=== PATIENT | male | born 1945 | race Caucasian/White ===

== ENCOUNTER → 2020-07-13 | Outpatient (CLI) | payer MEDICARE | LOC: KOH-I 09:27 | DX: M25.511 Pain in right shoulder (principal); M19.011 Primary osteoarthritis, right shoulder | CPT/HCPCS: 73030 ==

== ENCOUNTER 2020-07-22 12:28 | Emergency (ER) | payer MEDICARE ==
[2020-07-22 13:20] LABS: HEMOGLOBIN 14.7 gm/dl (14.0-17.5); RED BLOOD COUNT 4.76 M/UL (4.20-5.50); WHITE BLOOD COUNT 7.4 K/UL (4.5-11.0)
[2020-07-22 14:01] LABS: BUN/CREATININE RATIO 21 (0-10)
== END 2020-07-22 15:00 | disposition other institution (70) ==
LOC: ER1 12:28
PROVIDERS: Emergency Medicine
DX: I63.232 Cerebral infarction due to unspecified occlusion or stenosis of left carotid arteries (principal); R29.729 NIHSS score 29; E11.9 Type 2 diabetes mellitus without complications; Z20.822 Contact with and (suspected) exposure to COVID-19
CPT/HCPCS: 0240U; 70450; 70496; 70498; 71045; 80053; 82550; 82553; 83605; 83690; 83880; 84484; 85025; 85610; 85730; 93005; 96374; 99285; J1953; Q9967

== ENCOUNTER 2020-12-29 23:34 | Emergency (ER) | payer MEDICARE ==
[~2020-12-29] VITALS: Ht 185.4 cm; Wt 103.0 kg
[2020-12-29 23:43] LABS: HEMOGLOBIN 16.9 gm/dl (14.0-17.5); RED BLOOD COUNT 5.48 M/UL (4.20-5.50); WHITE BLOOD COUNT 11.6 K/UL (4.5-11.0)
[2020-12-30 00:07] LABS: BUN/CREATININE RATIO 19 (0-10)
== END 2020-12-30 05:08 | disposition short-term general hospital (02) ==
LOC: ER1 23:34
PROVIDERS: Family Medicine
DX: I63.231 Cerebral infarction due to unspecified occlusion or stenosis of right carotid arteries (principal); I63.232 Cerebral infarction due to unspecified occlusion or stenosis of left carotid arteries; Z20.822 Contact with and (suspected) exposure to COVID-19; E16.2 Hypoglycemia, unspecified; R29.719 NIHSS score 19
CPT/HCPCS: 70450; 70496; 70498; 71045; 80053; 82550; 82553; 82962; 83874; 84484; 85025; 85610; 85730; 93005; 96374; 99285; J1644; Q9967; U0002

== ENCOUNTER 2021-02-06 17:48 | Emergency (ER) | payer MEDICARE ==
[2021-02-06 18:44] LABS: HEMOGLOBIN 15.3 gm/dl (14.0-17.5); RED BLOOD COUNT 4.96 M/UL (4.20-5.50)
[2021-02-06 21:42] LABS: BUN/CREATININE RATIO 16 (0-10)
[2021-02-09 11:20] LABS: ACINETOBACTER BAUMANNII Not Detected (Negative); ENTEROCOCCUS Not Detected (Negative); ESCHERICHIA COLI Not Detected (Negative); KLEBSIELLA OXYTOCA Not Detected (Negative); KLEBSIELLA PNEUMONIAE Not Detected (Negative); KPC-CARBAPENEM-RESISTANCE GENE Not Detected (Negative); PROTEUS Not Detected (Negative); SERRATIA MARCESANS Not Detected (Negative); STAPHYLOCOCCUS AUREUS Not Detected (Negative); STREP AGALACTIAE (GROUP B) Not Detected (Negative); STREP PYOGENES (GROUP A) Not Detected (Negative); STREPTOCOCCUS Not Detected (Negative); vanA/B (VANCOMYCIN RESIST GENE Not Detected (Negative)
[2021-02-09 11:21] LABS: CANDIDA ALBICANS Not Detected (Negative); CANDIDA KRUSEI Not Detected (Negative); CANDIDA TROPICALIS Not Detected (Negative); HAEMOPHILUS INFLUENZAE Not Detected (Negative); PSEUDOMONAS AERUGINOSA Not Detected (Negative)
[2021-02-09 14:48] LABS: STAPHYLOCOCCUS DETECTED (Negative); mecA (METHICILLIN RESIST GENE DETECTED (Negative)
== END 2021-02-07 02:59 | disposition home or self-care (01) ==
LOC: ER1 17:48
PROVIDERS: Emergency Medicine
DX: R53.1 Weakness (principal); E11.9 Type 2 diabetes mellitus without complications; I10 Essential (primary) hypertension; Z86.73 Personal history of transient ischemic attack (TIA), and cerebral infarction without residual deficits; Z20.822 Contact with and (suspected) exposure to COVID-19; Z90.49 Acquired absence of other specified parts of digestive tract
CPT/HCPCS: 70450; 71045; 80053; 80307; 81001; 82550; 82553; 82962; 83605; 83735; 83874; 84484; 85025; 87040; 87077; 87150; 87186; 93005; 99285; U0002

== ENCOUNTER 2021-04-04 11:44 | Inpatient (IN) | payer MEDICARE, MEDICAID ==
[~2021-04-04] VITALS: Ht 180.3 cm; Wt 87.5 kg
[2021-04-04 12:55] LABS: HEMOGLOBIN 16.1 gm/dl (14.0-17.5); RED BLOOD COUNT 5.21 M/UL (4.20-5.50); WHITE BLOOD COUNT 9.1 K/UL (4.5-11.0)
[2021-04-05 05:59] LABS: RED BLOOD COUNT 4.97 M/UL (4.20-5.50); WHITE BLOOD COUNT 7.5 K/UL (4.5-11.0)
[2021-04-05] MEDS ORDERED: HYDROCODON-ACE1 EAC4 PO (11:05)
[2021-04-05] MEDS ORDERED: NOVOLOG FL100 UNIT/1 SQ (11:05)
[2021-04-05] MEDS ORDERED: GABAPENTIN800 MG PO (11:05)
[2021-04-05] MEDS ORDERED: LEVEMIR FL100 UNIT/1 SQ (11:06)
[2021-04-05] MEDS ORDERED: LISINOPRIL40 MG PO (11:06)
[2021-04-05] MEDS ORDERED: ATORVASTATIN CA80 MG PO (11:06)
[2021-04-05] MEDS ORDERED: CLOPIDOGREL75 MG PO (11:07)
[2021-04-05] MEDS ORDERED: LEVETIRACETAM750 MG PO (11:07)
[2021-04-05] MEDS ORDERED: SERTRALINE HCL25 MG PO (11:07)
[2021-04-05] MEDS ORDERED: PROAIR HFA8.5 GM INH (11:08)
[2021-04-05] MEDS ORDERED: HYDROCHLOROTHIA50 MG PO (11:08)
[2021-04-05] MEDS ORDERED: SENNA-S 8.6-501 EACH PO (11:08)
[2021-04-05] MEDS ORDERED: ASPIRIN EC81 MG PO (11:09)
[2021-04-06 06:38] LABS: HEMOGLOBIN 15.2 gm/dl (14.0-17.5); RED BLOOD COUNT 5.01 M/UL (4.20-5.50); WHITE BLOOD COUNT 6.6 K/UL (4.5-11.0)
--- NOTE | 2021-04-06 14:20 | NUR ---
04/06/21 1420 REPORT CALLED TO MANJEET CHOW RN TO BE TRANSFERRED TO ROOM 4112
[2021-04-07 03:55] LABS: HEMOGLOBIN 13.7 gm/dl (14.0-17.5); RED BLOOD COUNT 4.59 M/UL (4.20-5.50)
[2021-04-07 04:02] LABS: WHITE BLOOD COUNT 4.4 K/UL (4.5-11.0)
[2021-04-08 09:29] LABS: HEMOGLOBIN 15.3 gm/dl (14.0-17.5); RED BLOOD COUNT 5.04 M/UL (4.20-5.50); WHITE BLOOD COUNT 4.3 K/UL (4.5-11.0)
[2021-04-08] MEDS ORDERED: LISINOPRIL10 MG PO (15:10)
[2021-04-08] MEDS ORDERED: AMLODIPINE BESYL5 MG PO (15:10)
== END 2021-04-08 19:52 | disposition home or self-care (01) | DRG 638 ==
LOC: ER1 11:44 → CDU 20:24 → CCU 20:24 → MED SURG 4 04-06 14:42
PROVIDERS: Emergency Medicine; Internal Medicine; ADMIT Internal Medicine
DX: E11.65 Type 2 diabetes mellitus with hyperglycemia (principal); N17.9 Acute kidney failure, unspecified; I69.351 Hemiplegia and hemiparesis following cerebral infarction affecting right dominant side; E87.1 Hypo-osmolality and hyponatremia; G93.40 Encephalopathy, unspecified; Z20.822 Contact with and (suspected) exposure to COVID-19; W01.0XXA Fall on same level from slipping, tripping and stumbling without subsequent striking against object, initial encounter; I12.9 Hypertensive chronic kidney disease with stage 1 through stage 4 chronic kidney disease, or unspecified chronic kidney disease; F17.200 Nicotine dependence, unspecified, uncomplicated; R53.81 Other malaise; E86.0 Dehydration; R33.8 Other retention of urine; N18.30 Chronic kidney disease, stage 3 unspecified; J44.9 Chronic obstructive pulmonary disease, unspecified; Z99.81 Dependence on supplemental oxygen; Z90.49 Acquired absence of other specified parts of digestive tract; T50.2X5A Adverse effect of carbonic-anhydrase inhibitors, benzothiadiazides and other diuretics, initial encounter; Z79.899 Other long term (current) drug therapy; Z79.82 Long term (current) use of aspirin; Z79.4 Long term (current) use of insulin
CPT/HCPCS: 36415; 70450; 71045; 73502; 80048; 80053; 81001; 82550; 82553; 82962; 83605; 83874; 84484; 85025; 85610; 85730; 87040; 93005; 97116; 97116-GP-CQ; 97161; 97166; 99285; G0378; J0360; J1644; U0002

== ENCOUNTER 2021-06-25 13:22 | Inpatient (IN) | payer MEDICARE, MEDICAID ==
[~2021-06-25] VITALS: Ht 180.3 cm; Wt 92.5 kg
[~2021-06-25 13:22] MED LIST: AMLODIPINE BESYL5 MG PO; ASPIRIN EC81 MG PO; ATORVASTATIN CA80 MG PO; CLOPIDOGREL75 MG PO; GABAPENTIN800 MG PO; HYDROCHLOROTHIA50 MG PO; HYDROCODON-ACE1 EAC4 PO; LEVEMIR FL100 UNIT/1 SQ; LEVETIRACETAM750 MG PO; LISINOPRIL10 MG PO; LISINOPRIL40 MG PO; NOVOLOG MI100 UNIT/1 SQ; PROAIR HFA8.5 GM INH; SENNA-S 8.6-501 EACH PO; SERTRALINE HCL25 MG PO
[2021-06-25 13:51] LABS: HEMOGLOBIN 15.2 gm/dl (14.0-17.5); RED BLOOD COUNT 5.03 M/UL (4.20-5.50); WHITE BLOOD COUNT 8.7 K/UL (4.5-11.0)
[2021-06-25] MEDS ORDERED: LOSARTAN POTASS25 MG PO (15:58)
[2021-06-25] MEDS ORDERED: LISINOPRIL40 MG PO (15:58)
[2021-06-26 02:38] LABS: HEMOGLOBIN 14.3 gm/dl (14.0-17.5); RED BLOOD COUNT 4.8 M/UL (4.20-5.50)
--- NOTE | 2021-06-26 13:52 | NUR ---
STATES OK FOR PT TO BE OFF TELE FOR MRI
[2021-06-27 06:11] LABS: HEMOGLOBIN 14.2 gm/dl (14.0-17.5); RED BLOOD COUNT 4.79 M/UL (4.20-5.50); WHITE BLOOD COUNT 6.1 K/UL (4.5-11.0)
[2021-06-28 07:29] LABS: HEMOGLOBIN 15.3 gm/dl (14.0-17.5); RED BLOOD COUNT 5.17 M/UL (4.20-5.50)
[2021-06-28 07:30] LABS: WHITE BLOOD COUNT 7.9 K/UL (4.5-11.0)
[2021-06-28] MEDS ORDERED: COREG12.5 MG PO (09:43)
[2021-06-28] MEDS ORDERED: ELIQUIS 5 MG TAB5 MG PO (09:43)
== END 2021-06-28 13:24 | DRG 65 ==
LOC: ER1 13:22 → PROG CARE 17:44 → CDU 17:44 → PROG CARE 17:44 → M/S 06-26 10:14 → PROG CARE 06-26 10:14 → M/S 06-26 20:53
PROVIDERS: Internal Medicine; Nurse Practitioner; ADMIT Internal Medicine
PROC: B24BZZZ Ultrasonography of Heart with Aorta (ICD-10-PCS; principal; 2021-06-26)
DX: I63.522 Cerebral infarction due to unspecified occlusion or stenosis of left anterior cerebral artery (principal); N39.0 Urinary tract infection, site not specified; G81.91 Hemiplegia, unspecified affecting right dominant side; Z20.822 Contact with and (suspected) exposure to COVID-19; I65.21 Occlusion and stenosis of right carotid artery; J44.9 Chronic obstructive pulmonary disease, unspecified; N18.30 Chronic kidney disease, stage 3 unspecified; E11.22 Type 2 diabetes mellitus with diabetic chronic kidney disease; I08.3 Combined rheumatic disorders of mitral, aortic and tricuspid valves; R29.707 NIHSS score 7; E78.5 Hyperlipidemia, unspecified; I12.9 Hypertensive chronic kidney disease with stage 1 through stage 4 chronic kidney disease, or unspecified chronic kidney disease; Z79.82 Long term (current) use of aspirin; Z90.49 Acquired absence of other specified parts of digestive tract; Z82.49 Family history of ischemic heart disease and other diseases of the circulatory system; Z87.891 Personal history of nicotine dependence
CPT/HCPCS: ECHO; 0240U; 36415; 70450; 70496; 70498; 70551; 71045; 74230; 80053; 80307; 81001; 82140; 82550; 82553; 82962; 83605; 83735; 83874; 83880; 84100; 84484; 85025; 85027; 85610; 85730; 86140; 87040; 87086; 92526; 92610; 92611-GN; 93005; 93306; 94760; 96372; 96374; 96375; 96376; 97116; 97116-GP-CQ; 97162; 97166; 97530; 97535; 99285; G0378; J0360; J0696; J1650; J2060; J3475; Q9967

== ENCOUNTER 2021-07-16 10:47 | Emergency (ER) | payer MEDICARE ==
[~2021-07-16 10:47] MED LIST changes: +COREG12.5 MG PO; +ELIQUIS 5 MG TAB5 MG PO; +LOSARTAN POTASS25 MG PO
[2021-07-16 11:22] LABS: HEMOGLOBIN 16.5 gm/dl (14.0-17.5); RED BLOOD COUNT 5.46 M/UL (4.20-5.50); WHITE BLOOD COUNT 8.9 K/UL (4.5-11.0)
[2021-07-16] MEDS ORDERED: VISTARIL 25 MG25 MG PO (14:53)
== END 2021-07-16 17:30 | disposition home or self-care (01) ==
LOC: ER1 10:47
PROVIDERS: Emergency Medicine
DX: E11.65 Type 2 diabetes mellitus with hyperglycemia (principal); E11.22 Type 2 diabetes mellitus with diabetic chronic kidney disease; I12.9 Hypertensive chronic kidney disease with stage 1 through stage 4 chronic kidney disease, or unspecified chronic kidney disease; N18.9 Chronic kidney disease, unspecified; F41.9 Anxiety disorder, unspecified; E78.5 Hyperlipidemia, unspecified; R06.00 Dyspnea, unspecified; I69.351 Hemiplegia and hemiparesis following cerebral infarction affecting right dominant side; Z90.89 Acquired absence of other organs; Z79.01 Long term (current) use of anticoagulants
CPT/HCPCS: 70450; 71045; 80053; 81001; 82550; 82553; 82962; 83880; 84484; 85025; 85379; 93005; 96360; 99285

== ENCOUNTER 2021-07-20 12:58 | Inpatient (IN) | payer MEDICARE, MEDICAID ==
[~2021-07-20] VITALS: Ht 180.3 cm; Wt 88.5 kg
[~2021-07-20 12:58] MED LIST changes: +VISTARIL 25 MG25 MG PO
[2021-07-20 14:22] LABS: HEMOGLOBIN 15.4 gm/dl (14.0-17.5); RED BLOOD COUNT 5.11 M/UL (4.20-5.50); WHITE BLOOD COUNT 7.7 K/UL (4.5-11.0)
[2021-07-20] MEDS ORDERED: ELIQUIS5 MG PO (16:39)
[2021-07-20] MEDS ORDERED: CARVEDILOL12.5 MG PO (16:45)
[2021-07-21 07:28] LABS: HEMOGLOBIN 13.5 gm/dl (14.0-17.5); RED BLOOD COUNT 4.61 M/UL (4.20-5.50); WHITE BLOOD COUNT 6.6 K/UL (4.5-11.0)
[2021-07-22 06:19] LABS: RED BLOOD COUNT 4.72 M/UL (4.20-5.50); WHITE BLOOD COUNT 6.2 K/UL (4.5-11.0)
[2021-07-24 06:26] LABS: HEMOGLOBIN 14.8 gm/dl (14.0-17.5); RED BLOOD COUNT 4.94 M/UL (4.20-5.50); WHITE BLOOD COUNT 5.9 K/UL (4.5-11.0)
[2021-07-24] MEDS ORDERED: CARVEDILOL3.125 MG PO (11:27)
[2021-07-24] MEDS ORDERED: AMLODIPINE BESYL5 MG PO (11:27)
== END 2021-07-24 14:38 | disposition home health service (06) | DRG 684 ==
LOC: ER1 12:58 → M/S 17:37 → CDU 17:37 → M/S 21:53
PROVIDERS: Nurse Practitioner; Physician Assistant; Physician Assistant Medical; ADMIT Internal Medicine
DX: N17.9 Acute kidney failure, unspecified (principal); I12.9 Hypertensive chronic kidney disease with stage 1 through stage 4 chronic kidney disease, or unspecified chronic kidney disease; N18.30 Chronic kidney disease, stage 3 unspecified; E11.22 Type 2 diabetes mellitus with diabetic chronic kidney disease; R31.0 Gross hematuria; I16.0 Hypertensive urgency; I65.22 Occlusion and stenosis of left carotid artery; Z66 Do not resuscitate; E11.65 Type 2 diabetes mellitus with hyperglycemia; J44.9 Chronic obstructive pulmonary disease, unspecified; K59.00 Constipation, unspecified; E78.5 Hyperlipidemia, unspecified; R00.1 Bradycardia, unspecified; Z79.899 Other long term (current) drug therapy; Z86.73 Personal history of transient ischemic attack (TIA), and cerebral infarction without residual deficits; Z90.49 Acquired absence of other specified parts of digestive tract; Z82.49 Family history of ischemic heart disease and other diseases of the circulatory system; Z79.82 Long term (current) use of aspirin; Z79.01 Long term (current) use of anticoagulants; Z91.81 History of falling
CPT/HCPCS: 36415; 70450; 71045; 80048; 80053; 80307; 81001; 82009; 82140; 82550; 82553; 82962; 83605; 83735; 84100; 84484; 85025; 85027; 87040; 87086; 96361; 96374; 97116-GP-CQ; 97162; 97166; 97530; 99285; G0378; J0360; J7030

== ENCOUNTER 2021-08-10 17:31 | Inpatient (IN) | payer MEDICARE ==
[~2021-08-10] VITALS: Ht 182.9 cm; Wt 104.3 kg
[~2021-08-10 17:31] MED LIST changes: +CARVEDILOL12.5 MG PO; +CARVEDILOL3.125 MG PO; +ELIQUIS5 MG PO
[2021-08-10 19:00] LABS: HEMOGLOBIN 13.7 gm/dl (14.0-17.5); RED BLOOD COUNT 4.59 M/UL (4.20-5.50); WHITE BLOOD COUNT 6.7 K/UL (4.5-11.0)
[2021-08-12 05:51] LABS: HEMOGLOBIN 14.9 gm/dl (14.0-17.5); RED BLOOD COUNT 4.98 M/UL (4.20-5.50); WHITE BLOOD COUNT 7.5 K/UL (4.5-11.0)
--- NOTE | 2021-08-12 08:45 | NUR ---
PATIENT NOTED TO ATTEMPT TO TURN OFF STRIP BED ALARM AT WALL SITE. RN INSTRUCTED PATIENT NOT TO DO THIS THE ALARM WAS FOR PATIENT SAFETY AND FALL PREVENTION. PATIENT VERBALIZED UNDERSTANDING.
[2021-08-13 06:17] LABS: HEMOGLOBIN 15.4 gm/dl (14.0-17.5); RED BLOOD COUNT 5.04 M/UL (4.20-5.50); WHITE BLOOD COUNT 8.2 K/UL (4.5-11.0)
--- NOTE | 2021-08-14 19:30 | NUR ---
Pt double bed alarmed. Alarm went off at this time. Patient up out of bed. IV pole was hooked to patient. Patient as pulling it across room. Assisted patient/IV pole to bathroom. Patient voided then walked steadily back to bed.
[2021-08-16 06:26] LABS: HEMOGLOBIN 14.8 gm/dl (14.0-17.5); RED BLOOD COUNT 4.84 M/UL (4.20-5.50); WHITE BLOOD COUNT 8.4 K/UL (4.5-11.0)
--- NOTE | 2021-08-16 18:23 | NUR ---
Patient open eyes when spoken to, answer appropriately. drink ensure and orange juice with no problem. will recheck bs
--- NOTE | 2021-08-16 18:28 | NUR ---
patient bs rechecked 112. patient eating dinner at this time
--- NOTE | 2021-08-16 18:34 | NUR ---
Notified Dr. Hooker of patients glucose of 33. It was 112 after orange juice and Ensure.
[2021-08-17 06:21] LABS: HEMOGLOBIN 14.1 gm/dl (14.0-17.5); RED BLOOD COUNT 4.63 M/UL (4.20-5.50)
[2021-08-17 06:27] LABS: WHITE BLOOD COUNT 13.4 K/UL (4.5-11.0)
[2021-08-17 07:03] LABS: BUN/CREATININE RATIO 22 (0-10)
--- NOTE | 2021-08-17 17:12 | NUR ---
patient watching tv and bs 99
[2021-08-18 06:47] LABS: HEMOGLOBIN 15.1 gm/dl (14.0-17.5); RED BLOOD COUNT 4.95 M/UL (4.20-5.50)
[2021-08-18 06:49] LABS: WHITE BLOOD COUNT 8.3 K/UL (4.5-11.0)
[2021-08-18 07:05] LABS: BUN/CREATININE RATIO 22 (0-10)
[2021-08-19 06:22] LABS: HEMOGLOBIN 14.5 gm/dl (14.0-17.5); RED BLOOD COUNT 4.76 M/UL (4.20-5.50)
[2021-08-19 06:25] LABS: WHITE BLOOD COUNT 10.4 K/UL (4.5-11.0)
[2021-08-20 05:53] LABS: HEMOGLOBIN 13.5 gm/dl (14.0-17.5); RED BLOOD COUNT 4.5 M/UL (4.20-5.50); WHITE BLOOD COUNT 8.6 K/UL (4.5-11.0)
--- NOTE | 2021-08-20 18:19 | NUR ---
Notified Dr. Waddell of patients blood glucose of 45 at 1700. Replaced it with one amp of D50 and repeat 15 minutes later was 157
[2021-08-21 06:34] LABS: HEMOGLOBIN 13.2 gm/dl (14.0-17.5); RED BLOOD COUNT 4.37 M/UL (4.20-5.50)
--- NOTE | 2021-08-21 12:18 | NUR ---
Contacted manager sales to educate patient and caregiver about a diebetic diet.
--- NOTE | 2021-08-21 12:20 | NUR ---
Pt originally had an order to be discharged to a rehab facility and was waiting on placement. Pt refused rehab and family member named Jose Ramon Villafuerte said he will be living with him and caring for him. New order was put in to discharge patient home with family.
--- NOTE | 2021-08-21 13:21 | NUR ---
patient and son (caregiver) refused home health services. md and machine adjuster leader case trim aware of this. awaiting for staple cutter to provide education of diabetes, hypo/hyperglycemia.
--- NOTE | 2021-08-21 13:39 | NUR ---
return agent spoken and educated patient r/t diabetes desease, hypo and hyperglycemia and checking bs as instructed.
== END 2021-08-21 14:12 | disposition home health service (06) | DRG 194 ==
LOC: ER1 17:31 → MED SURG 4 08-11 17:25 → CDU 08-11 17:25 → MED SURG 4 08-11 19:17
PROVIDERS: Internal Medicine; Physician Assistant; Student in an Organized Health Care Education/Training Program; ADMIT Internal Medicine
DX: J18.9 Pneumonia, unspecified organism (principal); J44.0 Chronic obstructive pulmonary disease with (acute) lower respiratory infection; I12.9 Hypertensive chronic kidney disease with stage 1 through stage 4 chronic kidney disease, or unspecified chronic kidney disease; N18.30 Chronic kidney disease, stage 3 unspecified; Z20.822 Contact with and (suspected) exposure to COVID-19; Z66 Do not resuscitate; N28.9 Disorder of kidney and ureter, unspecified; E78.5 Hyperlipidemia, unspecified; E11.22 Type 2 diabetes mellitus with diabetic chronic kidney disease; E83.42 Hypomagnesemia; R29.6 Repeated falls; F17.210 Nicotine dependence, cigarettes, uncomplicated; Z79.82 Long term (current) use of aspirin; Z79.01 Long term (current) use of anticoagulants; Z86.73 Personal history of transient ischemic attack (TIA), and cerebral infarction without residual deficits; Z91.81 History of falling; Z90.49 Acquired absence of other specified parts of digestive tract; Z82.49 Family history of ischemic heart disease and other diseases of the circulatory system
CPT/HCPCS: 36415; 70450; 71045; 71250; 80048; 80053; 80307; 81001; 82550; 82553; 82947; 82962; 83735; 83880; 84484; 85025; 85027; 85652; 86140; 93005; 97110; 97116; 97116-GP-CQ; 97161; 97166; 97530-GP-CQ; 97535; 99285; J0360; J0692; J3475